=== PATIENT | male | born 1965 | race Caucasian/White ===

== ENCOUNTER 2019-03-12 18:42 | Inpatient (IN) ==
[2019-03-12] MEDS ORDERED: SODIUM CHLORIDE 0.9% 1000ML 1,000 ML IV SCH (18:45)
[2019-03-12] MEDS ORDERED: OPTIRAY 320 125ml IV PRN (18:49)
--- NOTE | 2019-03-12 18:58 | CT Scan Report ---
CT head/brain wo con CLINICAL HISTORY: 54 years-old Male presenting with Stroke evaluation. TECHNIQUE: Multidetector CT imaging of the head was performed without the use of intravenous contrast . IV contrast: None. One or more dose lowering techniques were used consistent with the principles of ALARA (as low as reasonably achievable), including automatic exposure control, mA or kV adjustment t o individual patient size, and/or use of iterative reconstruction. COMPARISON: None. CT DOSE (mGy.cm): The estimated cumulative dose is 1097.18. FINDINGS: Parcel Wrapper topogram: The patient is edentulous. Ventricles and sulci normal in size. No hemorrhage. Brain parenchyma normal in appearance with preser remedios austin-white differentiation. No acute territorial infarct. No mass effect or midline shift. No ext ra-axial fluid collection. Paranasal sinuses and mastoid air cells clear. Calvarium intact. IMPRESSION: 1. No acute intracranial abnormality. Electronically signed by: Que Leal M.D. 03/12/2019 6:56 PM
--- NOTE | 2019-03-12 19:03 | CT Scan Report ---
CT angio head w con CLINICAL HISTORY: 54 years-old Male presenting with right-sided weakness, concern for CVA. TECHNIQUE: Multidetector CT angiography of the head was performed after the administration of intrave nous contrast. 3-D volumetric and/or maximum intensity projection (MIP) images were subsequently lucia nstructed for review. IV contrast: 118 mL of Optiray 320. One or more dose lowering techniques were u sed consistent with the principles of ALARA (as low as reasonably achievable), including automatic ex posure control, mA or kV adjustment to individual patient size, and/or use of iterative reconstructio n. COMPARISON: None. CT DOSE (mGy.cm): The estimated cumulative dose is 1097.18 mGy.cm. FINDINGS: Heel Sander topogram: Unremarkable. Anterior circulation: Atherosclerosis of the cavernous segments of the internal carotid arteries. Int racranial portions of the internal carotid arteries patent to the level of the termini. Anterior cere bral arteries patent. Right middle cerebral artery (MCA) patent. Left MCA extremely diminutive with p oor delineation of left M2 branches. This raises concern for a proximal left MCA occlusion. Anterior communicating artery patent. Posterior circulation: Left dominant vertebral artery. Intradural portions of the vertebral arteries patent. Posterior inferior cerebellar arteries patent. Basilar artery patent. Anterior inferior cereb ellar arteries poorly visualized. Superior cerebellar arteries patent. Posterior cerebral arteries pa tent. Right posterior communicating artery (P-comm) patent. Left P-comm hypoplastic or aplastic. Dural venous sinuses: Patent. Other: Allowing for the phase of contrast, brain parenchyma within normal limits. Calvarium intact. IMPRESSION: 1. Findings concerning for proximal left MCA occlusion with overall poor opacification of distal lef t MCA territory branches. The report will be called/faxed according to standard departmental protocol for a critical finding. Electronically signed by: Que Leal M.D. 03/12/2019 7:02 PM
--- NOTE | 2019-03-12 19:06 | CT Scan Report ---
CT angio neck with con CLINICAL HISTORY: 54 years-old Male presenting with CVA. TECHNIQUE: Multidetector CT angiography of the neck was performed after the administration of intrave nous contrast. 3-D volumetric and/or maximum intensity projection (MIP) images were subsequently lucia nstructed for review. IV contrast: 118 mL of Optiray 320. One or more dose lowering techniques were u sed consistent with the principles of ALARA (as low as reasonably achievable), including automatic ex posure control, mA or kV adjustment to individual patient size, and/or use of iterative reconstructio n. Stenosis measurements were based on NASCET-like criteria (distal lumen diameter as the denominator for stenosis measurement). COMPARISON: None. CT DOSE (mGy.cm): The estimated cumulative dose is 1097.18. FINDINGS: Clinical Scientist topogram: Unremarkable. Aortic arch: Normal three-vessel aortic arch with patent origins of the branch vessels. Innominate artery: Patent. Right subclavian artery: Patent. Right common carotid artery: Patent. Right internal and external carotid arteries: Mild calcified and noncalcified atherosclerotic plaque at the carotid bifurcation without stenosis of the internal or external carotid arteries. Left common carotid artery: Patent. Left internal and external carotid arteries: Mild calcified and noncalcified atherosclerotic plaque a t the carotid bifurcation without stenosis of the internal or external carotid arteries. Left subclavian artery: Patent. Vertebral arteries: Left dominant vertebral artery. Origins and courses of the bilateral vertebral ar teries patent. Other: Limited intracranial evaluation within normal limits. Soft tissues of the neck normal allowing for the phase of contrast. Degenerative changes of the cervical spine. Lung apices clear. IMPRESSION: 1. No evidence of dissection, focal vessel occlusion, or significant stenosis of the cervical arteri es. Electronically signed by: Que Leal M.D. 03/12/2019 7:05 PM
[2019-03-12 19:19] LABS: Basophils # (auto) 0.04 K/uL (0-0.2); Basophils % (auto) 0.5 %; Eosinophils # (auto) 0.31 K/uL (0-0.5); Eosinophils % (auto) 3.9 %; Hemoglobin 14.5 g/dL (14.0-18.0); Immature Granulocytes # (auto) 0.03 K/uL (0.00-0.02); Immature Granulocytes % (auto) 0.4 %; Lymphocytes # (auto) 2.64 K/uL (1.2-3.4); Lymphocytes % (auto) 33.4 %; Mean Corpuscular Hemoglobin 30.1 pg (25-34); Mean Corpuscular Hgb Conc 34.5 g/dL (32-36); Mean Corpuscular Volume 87.3 fL (80-100); Mean Platelet Volume 8.9 fL (7.4-10.4); Monocytes # (auto) 0.55 K/uL (0.11-0.59); Neutrophils # (auto) 4.34 K/uL (1.4-6.5); Neutrophils % (auto) 54.8 %; Platelet Count 336 K/uL (130-400); RDW Coefficient of Variation 14.3 % (11.5-14.5); RDW Standard Deviation 45.9 fL (36.4-46.3); Red Blood Count 4.81 M/uL (4.7-6.1); White Blood Count 7.91 K/uL (4.8-10.8)
--- NOTE | 2019-03-12 19:21 | XRay Report ---
XR chest 1V portable CLINICAL HISTORY: 54 years-old Male presenting with CVA. TECHNIQUE: Portable upright AP view of the chest was obtained. COMPARISON: None. FINDINGS: Cardiomediastinal silhouette normal. No focal opacity. No large effusion or pneumothorax. Osseous str uctures normal. Upper abdomen normal. IMPRESSION: 1. No acute cardiopulmonary disease. Electronically signed by: Que Leal M.D. 03/12/2019 7:20 PM
[2019-03-12 19:29] LABS: Partial Thromboplastin Ratio 0.9; Partial Thromboplastin Time 24.5 Seconds (21.0-31.0); Prothrombin Time 10.2 Seconds (9.0-12.0)
[2019-03-12 19:36] LABS: Alanine Aminotransferase 35 U/L (12-78); Albumin Level 3.9 gm/dl (3.4-5.0); Aspartate Aminotransferase 15 U/L (15-37); BUN Creatinine Ratio 20.4 (10-20); Blood Urea Nitrogen 21 mg/dl (7-18); Calcium 9.2 mg/dl (8.5-10.1); Carbon Dioxide 28 mmol/L (21-32); Chloride 104 mmol/L (98-107); Est GFR (African American) 96.3; Est GFR (Non-African American) 83.1; Glucose 76 mg/dl (70-99); Magnesium 2.1 mg/dl (1.8-2.4); Sodium 138 mmol/L (136-145)
[2019-03-12 19:42] LABS: Albumin Globulin Ratio 1.1 (0.9-2); Alkaline Phosphatase 91 U/L (45-117); Bilirubin,Total 0.2 mg/dl (0.2-1); Globulin 3.7 gm/dl (2.5-4.0); Total Protein 7.6 gm/dl (6.4-8.2); Troponin I < 0.015 ng/ml (0-0.045)
[2019-03-12] MEDS ORDERED: ACETAMINOPHEN 1,000 MG/100 ML VIAL IV STA (19:52)
--- NOTE | 2019-03-12 20:01 | Emergency Department Note ---
Entered by Stacey Smith acting as a scribe for Kuldeep Bolton DO History of Present Illness General Chief complaint: Stroke Alert Stated complaint: STROKE ALERT Source: patient and other (nursing staff) History of Present Illness Onset (ago): hour(s) (1744 today) Location: head and neck Quality: + other (stroke like symptoms) Associated symptoms: + other (Positive head pain, back pain) The patient is a 54 year old male who presents to the ED with stroke like symptoms. As per nursing staff, the patient's last known well was 1744. Nursing staff reports the patient has a right sided facial droop. When asked, the zuleyma ent states he has head and neck pain. The patient states he was recently at [facility] for a stroke. When asked why the medical center thought he had a stroke, the patient states it is because "he has had many." He states he had bleeding in his brain from a clot in his brain. When asked the last time he had a stroke, the patient states he "does not remember." HPI and ROS limited due to the patient's current status. Home Medications Home Medications Medication Instructions Recorded Confirmed Type amlodipine 10 mg PO DAILY 03/12/19 03/12/19 History aspirin [Aspir-81] 81 mg PO DAILY 03/12/19 03/12/19 History atorvastatin 40 mg PO DAILY 03/12/19 03/12/19 History citalopram [Celexa] 20 mg PO DAILY 03/12/19 03/12/19 History clopidogrel [Plavix] 75 mg PO DAILY 03/12/19 03/12/19 History mirtazapine 15 mg PO DAILY 03/12/19 03/12/19 History nicotine 1 patch TRANSDERMAL DAILY 03/12/19 03/12/19 History nicotine (polacrilex) 2 mg BUCCAL DIRECTED PRN 03/12/19 03/12/19 History ziprasidone HCl [Geodon] 20 mg PO DAILY 03/12/19 03/12/19 History Allergies Allergy/AdvReac Type Severity Reaction Status Date / Time amoxicillin [From Augmentin] Allergy Unknown Unknown Verified 03/12/19 19:49 bee venom protein (honey bee) Allergy Unknown Unknown Verified 03/12/19 19:49 clavulanic acid Allergy Unknown Unknown Verified 03/12/19 19:49 [From Augmentin] turkey Allergy Unknown Unknown Verified 03/12/19 19:49 Past Med/Surg History Social History Preferred Language: Swedish Communication Ability: Effective Lens Grinder Rough Required: No Beliefs That Will Affect Care: None Current Living Situation: Homeless Other Information That Helps Us Care for You: No Feels Safe at Home: Yes Safety Concerns: Feels Safe At This Time Smoking Status: Current every day smoker Tobacco Type: cigarettes ; Cigarettes Per Day: 10 ; Do You Dip or Chew Tobacco: No ; Hx Alcohol Use: No Hx Substance Use: No Review of Systems See HPI for pertinent positives & negatives. Other (HPI and ROS limited due to the patient's current status. ) Physical Exam Vital Signs Vital Signs - 24 hr 03/12/19 18:46 03/12/19 19:45 03/12/19 20:30 Sepsis Recent Fever Within 48 Hours No Sepsis New/Unexplained Change in Mental Status Yes Sepsis Action Taken by Nursing No Action Required Pulse Rate 79 Pulse Rate [Bilateral] 72 87 Pulse Rhythm Regular Pulse Rhythm [Bilateral] Regular Regular Pulse Strength [Bilateral] Normal Normal Respiratory Rate 18 18 18 Respiratory Effort / Characteristics Non-Labored Spontaneous Non-Labored Spontaneous Non-Labored Spontaneous Respiratory Depth Normal Normal Normal Respiratory Pattern Regular Regular Blood Pressure 161/104 H Blood Pressure [Right Arm] 158/102 H 143/86 H Blood Pressure Mean 123 Blood Pressure Mean [Right Arm] 120 105 Blood Pressure Position Lying Blood Pressure Position [Right Arm] Lying Sitting Pulse Oximetry 97 97 99 Oxygen Delivery Method Room Air Room Air Room Air GENERAL: The patient is awake and anxious appearing. He answers questions slowly and follows commands slowly. EYES: The conjunctivae are clear. The pupils are round and reactive. EARS, NOSE, MOUTH AND THROAT: The nose is without any evidence of any deformity. Mucous membranes are moist tongue is midline NECK: The neck is nontender and supple. RESPIRATORY: Normal respiratory effort is noted there is no evidence of wheezing rhonchi or rales CARDIOVASCULAR: Regular rate and rhythm noted there no murmurs rubs or gallops normal S1 normal S2 GASTROINTESTINAL: The abdomen is soft. Bowel sounds are present in all quadrants. Abdomen is nontender MUSCULOSKELETAL/EXTREMITIES: There is no evidence of gross deformity full range of motion is noted in the hips and shoulders SKIN: There is no obvious evidence of any rash. There are no petechiae, pallor or cyanosis noted. NEUROLOGIC: The patient is oriented to person place but not time. Revolving Inventory Clerk strength is diminished in the right upper extremity. There is no gaze preference. Patient is able to hold each leg off the bed for greater than 5 seconds. Course 1844: Past medical records reviewed. The patient was evaluated in room A1. A complete history and physical exam was performed. 1904: I discussed the patient's case with Jade Alarcon neurologist. She will communicate via Telestroke. 1934: I discussed the patient's case with Jade Alarcon neurologist. She r ecommends no tPA at this time. 1944: Discussed the patient's case with Dr. Dasilva, [facility] Hospitalist. The patient will be evaluated for further management by him. 2002: The patient would like to sign out AMA. Administered Medications Sodium Chloride (Nss 1000ml) 1,000 mls @ 100 mls/hr IV .Q10H DALLIN Stop: 03/13/19 04:44 Last Admin: 03/12/19 19:38 Dose: 50 mls/hr Documented by: [id number] Ioversol (Optiray 320 125ml) 118 ml IV ONCE PRN PRN Reason: Interaction Checking Stop: 03/16/19 18:48 Last Admin: 03/12/19 18:49 Dose: 118 ml Documented by: [id number] Mirtazapine (Remeron) 15 mg PO HS DALLIN Stop: 04/11/19 21:59 Last Admin: 03/12/19 22:27 Dose: 15 mg Documented by: [id number] Nicotine (Nicoderm Cq) 21 mg TD QAM DALLIN Stop: 04/11/19 21:59 Last Admin: 03/12/19 22:27 Dose: 21 mg Documented by: [id number] Discontinued Medications Acetaminophen (Ofirmev) 1,000 mg in 100 mls @ 400 mls/hr IV NOW STA Stop: 03/12/19 20:06 Last Infusion: 03/12/19 20:35 Dose: 0 mls/hr Documented by: [id number] Admin: 03/12/19 20:11 Dose: 400 mls/hr Documented by: [id number] Medical Decision Making Differential Diagnosis Differential diagnosis: Etiologies such as metabolic, infection, hypo/hyperglycemia, electrolyte abnormalities, cardiac sources, intracerebral event, toxicologic, neurologic, as well as others were entertained. Medical Records Attestation: I reviewed the patient's medical records. Home Medications Current Medication List: was personally reviewed by me Laboratory Data Attestation: I reviewed the patient's lab results. Result diagrams: 03/12/19 19:08 03/12/19 19:08 Lab Results 03/12/19 03/12/19 03/12/19 Range/Units 19:08 19:08 19:08 WBC 7.91 (4.8-10.8) K/uL RBC 4.81 (4.7-6.1) M/uL Hgb 14.5 (14.0-18.0) g/dL Hct 42.0 (42-52) % MCV 87.3 (80-100) fL MCH 30.1 (25-34) pg MCHC 34.5 (32-36) g/dL RDW Std Deviation 45.9 (36.4-46.3) fL RDW Coeff of Neto 14.3 (11.5-14.5) % Plt Count 336 (130-400) K/uL MPV 8.9 (7.4-10.4) fL Immature Gran % (Auto) 0.4 % Neut % (Auto) 54.8 % Lymph % (Auto) 33.4 % [place] % (Auto) 7.0 % Eos % (Auto) 3.9 % Baso % (Auto) 0.5 % Immature Gran # (Auto) 0.03 H (0.00-0.02) K/uL Neut # (Auto) 4.34 (1.4-6.5) K/uL Lymph # (Auto) 2.64 (1.2-3.4) K/uL [place] # (Auto) 0.55 (0.11-0.59) K/uL Eos # (Auto) 0.31 (0-0.5) K/uL Baso # (Auto) 0.04 (0-0.2) K/uL PT 10.2 (9.0-12.0) Seconds INR 1.0 (0.9-1.1) APTT 24.5 (21.0-31.0) Seconds PTT Ratio 0.9 Sodium 138 (136-145) mmol/L Potassium 4.0 (3.5-5.1) mmol/L Chloride 104 (98-107) mmol/L Carbon Dioxide 28 (21-32) mmol/L Anion Gap 6.0 (3-11) BUN 21 H (7-18) mg/dl Creatinine 1.03 (0.6-1.4) mg/dl Est Cr Clr Drug Dosing Not Reportable Est GFR ( Amer) 96.3 Est GFR (Non-Af Amer) 83.1 BUN/Creatinine Ratio 20.4 H (10-20) Glucose 76 (70-99) mg/dl Calcium 9.2 (8.5-10.1) mg/dl Magnesium 2.1 (1.8-2.4) mg/dl Total Bilirubin 0.2 (0.2-1) mg/dl AST 15 (15-37) U/L ALT 35 (12-78) U/L Alkaline Phosphatase 91 (45-117) U/L Troponin I < 0.015 (0-0.045) ng/ml Total Protein 7.6 (6.4-8.2) gm/dl Albumin 3.9 (3.4-5.0) gm/dl Globulin 3.7 (2.5-4.0) gm/dl Albumin/Globulin Ratio 1.1 (0.9-2) Imaging Data Radiologist's Impression: Radiology results as stated below per my review and the radiologist's interpretation: XR chest 1V portable CLINICAL HISTORY: 54 years-old Male presenting with CVA. TECHNIQUE: Portable upright AP view of the chest was obtained. COMPARISON: None. FINDINGS: Cardiomediastinal silhouette normal. No focal opacity. No large effusion or pneumothorax. Osseous structures normal. Upper abdomen normal. IMPRESSION: 1. No acute cardiopulmonary disease. Electronically signed by: Que Leal M.D. 03/12/2019 7:[address] head/brain wo con CLINICAL HISTORY: 54 years-old Male presenting with Stroke evaluation. TECHNIQUE: Multidetector CT imaging of the head was performed without the use of intravenous contrast. IV contrast: None. One or more dose lowering techniques were used consistent with the principles of ALARA (as low as reasonably achievable), including automatic exposure control, mA or kV adjustment to individual patient size, and/or use of iterative reconstruction. COMPARISON: None. CT DOSE (mGy.cm): The estimated cumulative dose is 1097.18. FINDINGS: Chemical Technician topogram: The patient is edentulous. Ventricles and sulci normal in size. No hemorrhage. Brain parenchyma normal in appearance with preserved austin-white differentiation. No acute territorial infarct. No mass effect or midline shift. No extra-axial fluid collection. Paranasal sinuses and mastoid air cells clear. Calvarium intact. IMPRESSION: 1. No acute intracranial abnormality. Electronically signed by: Que Leal M.D. 03/12/2019 6:[address] angio head w con CLINICAL HISTORY: 54 years-old Male presenting with right-sided weakness, concern for CVA. TECHNIQUE: Multidetector CT angiography of the head was performed after the administration of intravenous contrast. 3-D volumetric and/or maximum intensity projection (MIP) images were subsequently reconstructed for review. IV contrast: 118 mL of Optiray 320. One or more dose lowering techniques were used consistent with the principles of ALARA (as low as reasonably achievable), including automatic exposure control, mA or kV adjustment to individual patient size, and/or use of iterative reconstruction. COMPARISON: None. CT DOSE (mGy.cm): The estimated cumulative dose is 1097.18 mGy.cm. FINDINGS: Chemical Technician topogram: Unremarkable. Anterior circulation: Atherosclerosis of the cavernous segments of the internal carotid arteries. Intracranial portions of the internal carotid arteries patent to the level of the termini. Anterior cerebral arteries patent. Right middle cerebral artery (MCA) patent. Left MCA extremely diminutive with poor delineation of left M2 branches. This raises concern for a proximal left MCA occlusion. Anterior communicating artery patent. Posterior circulation: Left dominant vertebral artery. Intradural portions of the vertebral arteries patent. Posterior inferior cerebellar arteries patent. Basilar artery patent. Anterior inferior cerebellar arteries poorly visualized. Superior cerebellar arteries patent. Posterior cerebral arteries patent. Right posterior communicating artery (P-comm) patent. Left P-comm hypoplastic or aplastic. Dural venous sinuses: Patent. Other: Allowing for the phase of contrast, brain parenchyma within normal limits. Calvarium intact. IMPRESSION: 1. Findings concerning for proximal left MCA occlusion with overall poor opacification of distal left MCA territory branches. The report will be called/faxed according to standard departmental protocol for a critical finding. Electronically signed by: Que Leal M.D. 03/12/2019 7:[address] angio neck with con CLINICAL HISTORY: 54 years-old Male presenting with CVA. TECHNIQUE: Multidetector CT angiography of the neck was performed after the administration of intravenous contrast. 3-D volumetric and/or maximum intensity projection (MIP) images were subsequently reconstructed for review. IV contrast: 118 mL of Optiray 320. One or more dose lowering techniques were used consistent with the principles of ALARA (as low as reasonably achievable), including automatic exposure control, mA or kV adjustment to individual patient size, and/ or use of iterative reconstruction. Stenosis measurements were based on NASCET- like criteria (distal lumen diameter as the denominator for stenosis measurement). COMPARISON: None. CT DOSE (mGy.cm): The estimated cumulative dose is 1097.18. FINDINGS: Chemical Technician topogram: Unremarkable. Aortic arch: Normal three-vessel aortic arch with patent origins of the branch vessels. Innominate artery: Patent. Right subclavian artery: Patent. Right common carotid artery: Patent. Right internal and external carotid arteries: Mild calcified and noncalcified atherosclerotic plaque at the carotid bifurcation without stenosis of the internal or external carotid arteries. Left common carotid artery: Patent. Left internal and external carotid arteries: Mild calcified and noncalcified atherosclerotic plaque at the carotid bifurcation without stenosis of the internal or external carotid arteries. Left subclavian artery: Patent. Vertebral arteries: Left dominant vertebral artery. Origins and courses of the bilateral vertebral arteries patent. Other: Limited intracranial evaluation within normal limits. Soft tissues of the neck normal allowing for the phase of contrast. Degenerative changes of the cervical spine. Lung apices clear. IMPRESSION: 1. No evidence of dissection, focal vessel occlusion, or significant stenosis of the cervical arteries. Electronically signed by: Que Leal M.D. 03/12/2019 7:05 PM ECG Data Attestation: I personally reviewed and interpreted this ECG as follows: Indication: other (stroke like symptoms) Rate (beats per minute): 82 Rhythm: normal sinus Findings: + other (no acute ST segments ); no ectopy Comparison ECG Date: no prior available Blood Pressure Blood Pressure Findings: Elevated blood pressure Blood Pressure Disposition: Referred to patients primary care provider CASSIE Narrative The patient is a 54-year-old male who presented to the emergency department as a stroke alert. The patient presented to the emergency department from the [facility] where he was an inpatient for mental health admission. The patient was found in his room on the floor with right-sided weakness and slurred speech. He was brought to the emergency department and made a stroke alert prior to arrival. The patient was taken directly to CT. Initially the patient was felt to be a candidate for TPA but we were able to get previous records from December where he had a very similar presentation. He does have some cerebrovascular issues with a left M1 segment of the middle cerebral artery. This was thought to be the culprit in his previous episode. He was treated with TPA in December. I discussed the patient's laboratory and radiographic studies with him. I discussed his case with the tele-stroke neurologist at [facility]. At this time I do not feel he is a good candidate for TPA given his recent treatment with TPA as well as his presentation being consistent with a stroke mimic. It was also found out during his interview with the tele-stroke neurologist that his symptoms may have been starting earlier in the day and the timing may put him out of the window for TPA. The patient was reevaluated multiple times. He was treated with IV fluids in the emergency department. I discussed his case with the on-call [facility] hospitalist group. They have agreed to evaluate the patient in the emergency department for further management disposition. The patient one-point was feeling much better and was possibly thinking about signing out AGAINST MEDICAL ADVICE. Ultimately when he was evaluated by the hospitalist team he was willing to stay for further inpatient management. Impression & Plan Cerebrovascular accident Discharge Plan Visit Data *Final* Discharge Date/Time: 03/12/19 21:00 Chief Complaint: Stroke Alert Stated Complaint: STROKE ALERT ED Provider: Kuldeep Bolton Discharge Problem: Cerebrovascular accident Patient Disposition: Admitted As Inpatient Discharge Instructions Interventions: ED Discharge Assessment Last Done: 03/12/19 21:00 Discharge Problem: Cerebrovascular accident Qualifiers: CVA mechanism: unspecified Qualified Code(s): I63.9 - Cerebral infarction, unspecified The scribe's documentation has been prepared under my direction and personally reviewed by me in its entirety. I confirm that the note above accurately reflects all work, treatment, procedures, and medical decision making performed by me.
--- NOTE | 2019-03-12 20:25 | History & Physical Report ---
Date of Service March 12, 2019 Assessment & Plan (1) TIA (transient ischemic attack): Mr. Garnica is a 54-year-old male with a past medical history of CVA, hypertension, hypercholesterolemia, and psychiatric disorders, who presented to the emergency department due to concerns for a stroke. ED course: 1 g IV acetaminophen, IV NS -Admit to telemetry -Symptoms of confusion, right sided weakness, and right facial droop resolved by the time of my examination -CT head negative, CTA neck negative -CTA head showed proximal left MCA occlusion -> Reportedly this occlusion is chronic - had the same findings at [facility] in December -> ED physician discussed his case with neurology in [place], who did not recommend TPA given improving symptoms -> Patient reported having a dose of clonidine prior to the onset of the symptoms - may have dropped his blood pressure, resulting in a steal phenomenon -MRI head ordered, as well as ECHO, HbA1c and FLP to complete a full stroke workup -PT/OT/SLT evals ordered -neurology consulted, thank you for recommendations -continue home aspirin and plavix Hypertension -Hold home amlodipine -clonidine is not listed on pt's home medications Hypercholesterolemia -Continue home atorvastatin Psychiatric disorders -Continue home citalopram, ziprasidone and mirtazapine -Patient requested PRN Ativan, stating he takes this at home Tobacco abuse -nicotine patch ordered -Encourage smoking cessation CODE STATUS: Full DVT prophylaxis: SCDs Disposition: Admit to telemetry. Eventual d/c back to the [facility] (2) Depression: (3) Hypercholesterolemia: (4) Hypertension: (5) Tobacco abuse: History of Present Illness Chief Complaint: Right sided Weakness Primary Care Provider: Charly White Mr. Garnica is a 54-year-old male with a past medical history of CVA, hypertension, hypercholesterolemia, and psychiatric disorders, who presented to the emergency department due to concerns for a stroke. The patient is currently residing at the [facility], where he was undergoing inpatient treatment for his psychiatric conditions. [place] nursing staff was not present at the time of my examination, and medical history is largely obtained by chart review, and discussion with the ED physician and nursing. Per the chart review, the patient was last well at 5:45 PM. After this time, he was found to be "unresponsive," m utening he was not answering questions. When he did begin answering questions, he was confused, and exhibiting a right-sided facial droop and right-sided weakness. Per the staff at the [facility], this occurred after the patient took his evening dose of clonidine. Mr. Garnica states that he does not remember why he was brought to the hospital. He states that his last memory was going downstairs for dinner. He states that he currently feels well, and has no acute complaints. He states that he has not had any illnesses recently. He does report that he had a recent stroke per months ago at [facility] in [place]. He is not too clear on the details surrounding this. Past medical history: history of CVA, hypertension, hypercholesterolemia, and psychiatric disorders (patient states that he just has severe depression, however he is on medications to treat bipolar disorder and schizophrenia) Past surgical history: 2 ACL repairs, back surgery Medications: Amlodipine, aspirin, atorvastatin, citalopram, clopidogrel, mirtazapine, nicotine replacement, ziprasidone. Clonidine is not listed on patient's medication list Allergies: Augmentin Social history: Resides at the [facility], recently moved there 2 days ago. Smokes half a pack of cigarettes per day, does not wish to tell me how long he has been smoking for. No recent alcohol or recreational drug use. Allergies Allergy/AdvReac Type Severity Reaction Status Date / Time amoxicillin [From Augmentin] Allergy Unknown Unknown Verified 03/12/19 19:49 bee venom protein (honey bee) Allergy Unknown Unknown Verified 03/12/19 19:49 clavulanic acid Allergy Unknown Unknown Verified 03/12/19 19:49 [From Augmentin] turkey Allergy Unknown Unknown Verified 03/12/19 19:49 Home Medications Home Medications Medication Instructions Recorded Confirmed Type amlodipine 10 mg PO DAILY 03/12/19 03/12/19 History aspirin [Aspir-81] 81 mg PO DAILY 03/12/19 03/12/19 History atorvastatin 40 mg PO DAILY 03/12/19 03/12/19 History citalopram [Celexa] 20 mg PO DAILY 03/12/19 03/12/19 History clopidogrel [Plavix] 75 mg PO DAILY 03/12/19 03/12/19 History mirtazapine 15 mg PO DAILY 03/12/19 03/12/19 History nicotine 1 patch TRANSDERMAL DAILY 03/12/19 03/12/19 History nicotine (polacrilex) 2 mg BUCCAL DIRECTED PRN 03/12/19 03/12/19 History ziprasidone HCl [Geodon] 20 mg PO DAILY 03/12/19 03/12/19 History Past Med/Surg History Social History Preferred Language: Occitan Communication Ability: Effective Wedding Makeup Artist Required: No Beliefs That Will Affect Care: None Current Living Situation: Homeless Other Information That Helps Us Care for You: No Feels Safe at Home: Yes Safety Concerns: Feels Safe At This Time Smoking Status: Current every day smoker Tobacco Type: cigarettes ; Cigarettes Per Day: 10 ; Do You Dip or Chew Tobacco: No ; Hx Alcohol Use: No Hx Substance Use: No Review of Systems Constitutional: no fever, no chills, no fatigue, no weakness and no anorexia Eyes: no diplopia and no loss of peripheral vision Respiratory: no cough, no dyspnea and no wheezing Cardiovascular: no chest pain, no palpitations, no syncope, no edema and no calf pain Gastrointestinal: no abdominal pain, no nausea, no vomiting and no change in bowel habits Genitourinary: no dysuria and no difficulty urinating Musculoskeletal: + joint pain (right knee pain, secondary to ACL tear per patient); no back pain Integumentary: no rash Neurologic: + confusion Psychiatric: + depression Physical Exam Constitutional: WD/WN, vitals as above cooperative and comfortable Eyes: PERRL, conjunctivae normal, anicteric sclerae ENMT: external ear and nose normal, oropharynx normal Respiratory: normal respiratory effort, lungs clear to auscultation Cardiovascular: RRR, no murmur, no edema Gastrointestinal (Abdomen): normal bowel sounds, soft, nontender, no hepatosplenomegaly Musculoskeletal: no cyanosis or clubbing, extremities motor strength 5/5 Skin: no rashes, warm and dry Neurologic: patellar DTR's 2+ bilat, sensation intact and PERRL, EOMI, accommodation nl, no face palsy, no dysarthria moves all extremities and awake Motor/Sensory: + pronator drift (right sided) Results & Data Vital Signs (Past 12 Hours) Vital Signs Pulse Pulse Resp BP BP Pulse Ox 03/12/19 19:45 72 18 158/102 H 97 03/12/19 18:46 79 18 161/104 H 97 Supervising Physician Co-Signing Physician Notes Patient was seen and examined by me personally. I reviewed the chart, the orders and discussed the case in detail with Dr. Teresa Rod MD . I read this H&P and agree with its contents to entirety. PG Care Time/CCT Total # of Minutes Spent Total Time Spent with Patient: Total time spent is greater than 50% in coor dination of care (as documented) at patient's floor/unit and/or counseling patient: Resident Activity Tracking Resident Involvement: Resident Care Provided Care Provided: Adult Hospital Medicine
[2019-03-12] MEDS ORDERED: PHARMACIST DISCHARGE MED REC CONSULT PRN (21:29)
[2019-03-12] MEDS ORDERED: ACETAMINOPHEN 325 MG TAB PO PRN (21:29)
[2019-03-12] MEDS ORDERED: MIRTAZAPINE TAB 15 MG TAB PO SCH (22:00)
[2019-03-12] MEDS ORDERED: NICOTINE 21 MG/24 HR TDSY TD SCH (22:00)
[2019-03-13] MEDS: LORazepam 0.5 MG TAB PO PRN ×3 (03:44→17:13)
[2019-03-13] MEDS ORDERED: CALCIUM CARBONATE 500 MG CHEWABLE TAB PO PRN (03:55)
[2019-03-13 06:09] LABS: Basophils # (auto) 0.04 K/uL (0-0.2); Basophils % (auto) 0.5 %; Eosinophils # (auto) 0.48 K/uL (0-0.5); Eosinophils % (auto) 6.5 %; Hematocrit (blood only) 39.8 % (42-52); Hemoglobin 13.7 g/dL (14.0-18.0); Immature Granulocytes # (auto) 0.02 K/uL (0.00-0.02); Immature Granulocytes % (auto) 0.3 %; Lymphocytes # (auto) 3.06 K/uL (1.2-3.4); Lymphocytes % (auto) 41.7 %; Mean Corpuscular Hgb Conc 34.4 g/dL (32-36); Mean Corpuscular Volume 87.3 fL (80-100); Mean Platelet Volume 8.7 fL (7.4-10.4); Monocytes # (auto) 0.43 K/uL (0.11-0.59); Monocytes % (auto) 5.9 %; Neutrophils % (auto) 45.1 %; Platelet Count 290 K/uL (130-400); RDW Coefficient of Variation 14.2 % (11.5-14.5); RDW Standard Deviation 45.4 fL (36.4-46.3); Red Blood Count 4.56 M/uL (4.7-6.1); White Blood Count 7.33 K/uL (4.8-10.8)
[2019-03-13 06:43] LABS: Calcium 8.8 mg/dl (8.5-10.1); Creatinine Clr Calc Pharmacy 87.3 ml/min; Est GFR (African American) 101.1; Est GFR (Non-African American) 87.2; Potassium 3.7 mmol/L (3.5-5.1)
--- NOTE | 2019-03-13 06:57 | Magnetic Resonance Report ---
MR brain wo con HISTORY: Mental status change CVA vs TIA TECHNIQUE: Multiplanar multisequence MRI of the brain was performed without the use of contrast. COMPARISON STUDY: None. FINDINGS: No evidence for an acute ischemic event. Ventricular system is midline. Several nonspecific foci of increased signal within both cerebral hemispheres as well as the optic ra diations. Diagnostic considerations include chronic small vessel change, atypical late onset demyelinating diso rder, as well as a variety of less common entities such as Lyme's disease. IMPRESSION: 1. No acute intracranial abnormality. 2. No evidence for an acute ischemic event. 3. Several nonspecific foci of increased signal throughout both cerebral hemispheres. Diagnostic cons iderations include a late onset demyelinating disorder, chronic small vessel change, versus less like ly entities such as Lyme's disease. The above report was generated using voice recognition software. It may contain grammatical, syntax or spelling errors. Electronically signed by: Jacob Ying M.D. 03/13/2019 6:56 AM
[2019-03-13 06:59] LABS: Estimated Average Glucose 114 mg/dl; Hemoglobin A1C 5.6 % (4.5-5.6)
[2019-03-13] MEDS ORDERED: NICOTINE 21 MG/24 HR TDSY TD SCH (09:00)
[2019-03-13] MEDS ORDERED: ASPIRIN 81 MG ECTAB PO SCH (09:00)
[2019-03-13] MEDS ORDERED: ATORVASTATIN 40 MG TAB PO SCH (09:00)
[2019-03-13] MEDS ORDERED: ZIPRASIDONE HCL 20 MG CAP PO SCH (09:00)
[2019-03-13] MEDS ORDERED: CITALOPRAM 20 MG TAB PO SCH (09:00)
[2019-03-13] MEDS ORDERED: MIRTAZAPINE TAB 15 MG TAB PO SCH (09:00)
[2019-03-13] MEDS ORDERED: CLOPIDOGREL BISULFATE 75 MG TAB PO SCH (09:00)
--- NOTE | 2019-03-13 09:48 | Neurology Consultation ---
Date of Consultation March 13, 2019 Assessment & Plan (1) TIA (transient ischemic attack): This patient's presentation seems most consistent with a TIA localizing to the left middle cerebral artery territory. He does have what appears to be a proximal occlusion of the left MCA with poor distal reconstitution. Fortunately no evidence of acute or subacute infarct on MRI. This finding was apparently identified in December during a similar presentation to [facility]. He is already on maximal antiplatelet therapy and I would not recommend making any changes to either his aspirin or Plavix at this time. His blood pressure seems appropriate. No evidence for hypotensive episode. His blood glucose is normal as well. No evidence for hypoglycemic episode. As he was found unresponsive initially I am unable to completely exclude a seizure of focal onset localizing to the left cerebral hemisphere followed by a period of postictal weakness and speech change. Seizures were not observed in this patient, however. Nonetheless, for further assessment of possible "stroke mimics" I have ordered an EEG. Going forward, this patient should probably have a consultation with a neurovascular specialist at either [facility] or [facility] to determine if any further treatment would be indicated for his left MCA occlusion/severe stenosis. I do not think he has had a conventional arteriogram. However, the role for stenting of the middle cerebral arteries is not entirely clear. Yet, given his relatively young age and recurrent symptoms it is possible he would be a potential candidate for intervention. He should continue with atorvastatin as well. History of Present Illness Reason for Consultation: TIA? Requesting Physician: Teresa Rod MD Attending Physician: Ernst Betancourt History of Present Illness The patient is a 54-year-old male, transferred from the [facility], for further assessment of an abrupt change in mental status. He was apparently found on the floor exhibiting right-sided weakness and slurred speech. He came in to [facility] as a stroke alert. The symptoms have resolved. He does complain of a moderate intensity global headache with associated neck pain. He currently denies any change in vision, speech, or focal weakness. Past medical history notable for a very similar presentation that occurred this past December, at [facility], during which she was diagnosed with a suspected left MCA territory stroke syndrome and he was treated with TPA. He was found to have an occlusion or significant stenosis of the left M1 segment at that time. It sounds like he made a good neurological recovery. He has been taking both daily low-dose aspirin and clopidogrel as well as atorvastatin. Family history noncontributory Allergies Allergy/AdvReac Type Severity Reaction Status Date / Time amoxicillin [From Augmentin] Allergy Unknown Unknown Verified 03/12/19 19:49 bee venom protein (honey bee) Allergy Unknown Unknown Verified 03/12/19 19:49 clavulanic acid Allergy Unknown Unknown Verified 03/12/19 19:49 [From Augmentin] turkey Allergy Unknown Unknown Verified 03/12/19 19:49 Home Medications Home Medications Medication Instructions Recorded Confirmed Type amlodipine 10 mg PO DAILY 03/12/19 03/12/19 History aspirin [Aspir-81] 81 mg PO DAILY 03/12/19 03/12/19 History atorvastatin 40 mg PO DAILY 03/12/19 03/12/19 History citalopram [Celexa] 20 mg PO DAILY 03/12/19 03/12/19 History clopidogrel [Plavix] 75 mg PO DAILY 03/12/19 03/12/19 History mirtazapine 15 mg PO DAILY 03/12/19 03/12/19 History nicotine 1 patch TRANSDERMAL DAILY 03/12/19 03/12/19 History nicotine (polacrilex) 2 mg BUCCAL DIRECTED PRN 03/12/19 03/12/19 History ziprasidone HCl [Geodon] 20 mg PO DAILY 03/12/19 03/12/19 History Patient History Social History Preferred Language: Tuvaluan Communication Ability: Effective Food Manager Required: No Beliefs That Will Affect Care: None Current Living Situation: Homeless Other Information That Helps Us Care for You: No Feels Safe at Home: Yes Safety Concerns: Feels Safe At This Time Smoking Status: Current every day smoker Tobacco Type: cigarettes ; Cigarettes Per Day: 10 ; Do You Dip or Chew Tobacco: No ; Hx Alcohol Use: No Hx Substance Use: No Review of Systems Constitutional: no fever and no chills Eyes: no blind spots and no diplopia Ear, Nose, Mouth, Throat: no tinnitus and no hearing loss Respiratory: no cough and no dyspnea Cardiovascular: no chest pain and no palpitations Gastrointestinal: no nausea and no vomiting Genitourinary: no dysuria and no urinary incontinence Musculoskeletal: as per Subjective / HPI and + neck pain; no myalgia Integumentary: no rash and no lesions Neurologic: as per Subjective / HPI Psychiatric: + depression Hematologic / Lymphatic: no easy bleeding and no easy bruising Physical Exam Physical Exam: The patient is a well-developed, well-nourished middle-aged male. He is alert and fully oriented. Recent and remote memory intact. Attention and concentration normal. Patient exhibits a normal spontaneous speech pattern as well as an age-appropriate fund of knowledge. He is able to name objects and repeat phrases and follows commands without difficulty. Visual aguilar full to confrontation. Visual acuity normal. Pupils equal round react to light and accommodation. Eye movements normal. There is no nystagmus. Facial sensation intact. There is no facial droop or weakness. Hearing intact. Palate elevates to midline. Shoulder shrug intact. Tongue protrudes to midline. Sensation intact to all modalities in all 4 limbs. Deep tendon reflexes intact and symmetrical for the arms and legs bilaterally. Plantar responses downgoing bilaterally. There is no dysdiadochokinesia or dysmetria [id number] or [id number] bilaterally. Ophthalmoscopic examination reveals normal-appearing optic disks and posterior segments. No papilledema or hemorrhages. Carotid pulses normal bilaterally, no bruits to auscultation. Gait and station normal. Patient exhibits normal muscle strength and tone for all 4 limbs. No atrophy. No abnormal movements observed. Results & Data Vital Signs (Past 12 Hours) Vital Signs Temp Pulse Pulse Pulse Resp BP Pulse Ox 03/13/19 07:31 36.4 C L 72 18 151/95 H 97 03/13/19 04:15 36.4 C L 64 18 127/90 97 03/13/19 00:00 73 03/12/19 23:00 36.6 C 68 18 137/72 97 03/12/19 21:38 37 C 81 76 20 121/92 97 Laboratory Results WBC 7.33, hemoglobin 13.7, hematocrit 39.8, platelet count 290, sodium 142, potassium 3.7, BUN 17, creatinine 0.99, glucose 161, hemoglobin A1c 5.6, calcium 8.8, triglycerides 129, cholesterol 134, LDL 78, VLDL 26, HDL [address] of the head completed yesterday was negative for hemorrhage or acute process. I reviewed the images as well as the radiologist interpretation of this test. A CTA of the head revealed findings suggestive of a proximal left MCA occlusion with overall poor opacification of distal left MCA territory branches. I reviewed the images as well as the radiologist interpretation of this test. A CTA of the neck was unremarkable. No evidence for focal vessel occlusion, dissection or stenosis. MRI of the brain negative for acute abnormality. No evidence for acute or subacute ischemic stroke. There are several nonspecific foci of increased T2/flair signal throughout the brain parenchyma likely consistent with chronic small vessel ischemic change. I reviewed the images as well as the radiologist interpretation of this test. Electrocardiogram reveals a normal sinus rhythm, 82 bpm.
--- NOTE | 2019-03-13 10:43 | Electroencephalogram ---
EEG Procedure Note Date of Service March 13, 2019 Start / End Times Start Time: 8:56 AM End Time: 9:16 AM Referring Physician Varghese Elizondo MD History Left MCA occlusion, recurrent strokelike episodes, evaluate for possible seizure activity. Home Medication List Home Medications Medication Instructions Recorded Confirmed Type amlodipine 10 mg PO DAILY 03/12/19 03/12/19 History aspirin [Aspir-81] 81 mg PO DAILY 03/12/19 03/12/19 History atorvastatin 40 mg PO DAILY 03/12/19 03/12/19 History citalopram [Celexa] 20 mg PO DAILY 03/12/19 03/12/19 History clopidogrel [Plavix] 75 mg PO DAILY 03/12/19 03/12/19 History mirtazapine 15 mg PO DAILY 03/12/19 03/12/19 History nicotine 1 patch TRANSDERMAL DAILY 03/12/19 03/12/19 History nicotine (polacrilex) 2 mg BUCCAL DIRECTED PRN 03/12/19 03/12/19 History ziprasidone HCl [Geodon] 20 mg PO DAILY 03/12/19 03/12/19 History Inpatient Medication List Calcium Carbonate (Tums) 500 mg PO TID PRN PRN Reason: Indigestion Stop: 04/12/19 03:54 Last Admin: 03/13/19 05:59 Dose: 500 mg Documented by: [id number] Ioversol (Optiray 320 125ml) 118 ml IV ONCE PRN PRN Reason: Interaction Checking Stop: 03/16/19 18:48 Last Admin: 03/12/19 18:49 Dose: 118 ml Documented by: [id number] Lorazepam (Ativan) 0.5 mg PO BID PRN PRN Reason: Anxiety Stop: 04/11/19 21:48 Last Admin: 03/13/19 03:44 Dose: 0.5 mg Documented by: [id number] Mirtazapine (Remeron) 15 mg PO HS DALLIN Stop: 04/11/19 21:59 Last Admin: 03/12/19 22:27 Dose: 15 mg Documented by: [id number] Nicotine (Nicoderm Cq) 21 mg TD QAM DALLIN Stop: 04/11/19 21:59 Last Admin: 03/12/19 22:27 Dose: 21 mg Documented by: [id number] Discontinued Medications Sodium Chloride (Nss 1000ml) 1,000 mls @ 100 mls/hr IV .Q10H DALLIN Stop: 03/13/19 04:44 Last Admin: 03/12/19 19:38 Dose: 50 mls/hr Documented by: [id number] Acetaminophen (Ofirmev) 1,000 mg in 100 mls @ 400 mls/hr IV NOW STA Stop: 03/12/19 20:06 Last Infusion: 03/12/19 20:35 Dose: 0 mls/hr Documented by: [id number] Admin: 03/12/19 20:11 Dose: 400 mls/hr Documented by: [id number] Description This is a 21 electrode EEG with a single channel dedicated to limited EKG. The electrodes were placed in accordance with the International 10-20 system. There is a posterior dominant rhythm of 10 Hz which is symmetrically distributed and attenuates with eye opening. There is a normal anterior to posterior organization. Photic stimulation is unremarkable. Hyperventilation is not performed. There is fairly continuous 4 Hz posterior slowing, more prominent over the posterior left cerebral hemisphere. There are a few vertex waves in the latter part of the study suggesting N1 stage sleep. There are no epileptiform abnormalities. Interpretation This awake/asleep EEG reveals focal slowing localizing to the posterior left cerebral hemisphere and suggest focal underlying neuronal dysfunction. There are no findings suggestive of seizure disorder, however. Clinical Correlation The observed focal slowing is likely consistent with this patient's history of left MCA occlusion. A seizure disorder is not supported at this time. Please see today's neurology consult for further details. [facility] EEG Procedure Codes Indication for Procedure (1) Seizure-like activity: (2) TIA (transient ischemic attack):
--- NOTE | 2019-03-13 11:23 | Medical Student Progress Note ---
Date of Service March 13, 2019 Assessment & Plan (1) TIA (transient ischemic attack): Possible TIA of left MCA but no evidence on MRI, or possible seizure with postictal confusion and weakness. * EEG to evaluate possible seizure * aspirin + clopidogrel * hold BP med amlodipine for 24HR, then reinstate * continue statin, citalopram, mirtazapine, ziprasidone Subjective Pt is a 54 y/o male with a history of HTN, HLD, stroke, 15 pack-years, depression who presented to the ER with confusion, unresponsive, right side arm and leg weakness, and right facial droop. He was brought in by staff from the [facility]. Pt states he has not been on any medication for several years because he hasn't been able to afford them on SSI and being unemployed, and states he has had over 10 similar episodes within the past year. He states during these episodes, he loses function and feeling in his right arm, leg, and face, but these symptoms resolve within 1 to 2 hours. Pt states he feels disoriented afterwards, but does not endorse any incontinence during these episodes. Pt states that leading up to some episodes, he experiences chest pain, dyspnea, sweating, dry mouth, and metallic taste in his mouth. Pt states there have been a few times he's fallen and hit his head during an episode. Pt states that during this episode, he was confused, which was different from any other episodes. Pt states he is currently having a stabbing headache on the left side, as well as feeling exhausted. As of this examination, pt does not endorse any disorientation, weakness, facial droop, chest pain, dyspnea, sweating, or unsteadiness. Review of Systems Constitutional: + fatigue Eyes: no problem reported Respiratory: no dyspnea Cardiovascular: no chest pain Musculoskeletal: no muscle weakness Neurologic: no unsteadiness, no localized weakness and no loss of sensation Psychiatric: no confusion Physical Exam Constitutional: no acute distress and no altered mental status Eyes: PERRL, conjunctivae normal, anicteric sclerae Respiratory: normal respiratory effort, lungs clear to auscultation Cardiovascular: Rate/Rhythm: regular rate and regular rhythm Musculoskeletal: no cyanosis or clubbing, extremities motor strength 5/5 Neurologic: PERRL, EOMI, accommodation nl, no face palsy, no dysarthria Psychiatric: A+Ox3, euthymic affect Results & Data Vital Signs (Past 12 Hours) Vital Signs Temp Pulse Pulse Pulse Resp BP Pulse Ox 03/13/19 07:31 36.4 C L 72 18 151/95 H 97 03/13/19 04:15 36.4 C L 64 18 127/90 97 03/13/19 00:[address] showed no acute intracranial abnormality. Neck CT showed no evidence of dissection, focal vessel occlusion, or significant stenosis of the cervical arteries. Brain MRI showed no evidence for an acute ischemic event.
[2019-03-13] MEDS ORDERED: STROKE PATIENT DISCHARGE STA (14:49)
--- NOTE | 2019-03-23 22:16 | Discharge Summary ---
Date of Service March 13, 2019 Admission HPI Per Admitting Provider Mr. Garnica is a 54-year-old male with a past medical history of CVA, hypertension, hypercholesterolemia, and psychiatric disorders, who presented to the emergency department due to concerns for a stroke. The patient is currently residing at the [facility], where he was undergoing inpatient treatment for his psychiatric conditions. [facility] nursing staff was not present at the time of my examination, and medical history is largely obtained by chart review, and discussion with the ED physician and nursing. Per the chart review, the patient was last well at 5:45 PM. After this time, he was found to be "unresponsive," meaning he was not answering questions. When he did begin answering questions, he was confused, and exhibiting a right-sided facial droop and right-sided weakness. Per the staff at the [facility], this occurred after the patient took his evening dose of clonidine. Mr. Garnica states that he does not remember why he was brought to the hospital. He states that his last memory was going downstairs for dinner. He states that he currently feels well, and has no acute complaints. He states that he has not had any illnesses recently. He does report that he had a recent stroke per months ago at [facility] in [place]. He is not too clear on the details surrounding this. Past medical history: history of CVA, hypertension, hypercholesterolemia, and psychiatric disorders (patient states that he just has severe depression, however he is on medications to treat bipolar disorder and schizophrenia) Past surgical history: 2 ACL repairs, back surgery Medications: Amlodipine, aspirin, atorvastatin, citalopram, clopidogrel, mirtazapine, nicotine replacement, ziprasidone. Clonidine is not listed on patient's medication list Allergies: Augmentin Social history: Resides at the [facility], recently moved there 2 days ago. Smokes half a pack of cigarettes per day, does not wish to tell me how long he has been smoking for. No recent alcohol or recreational drug use. Principal Diagnosis TIA Discharge Exam Constitutional: WD/WN, vitals as above cooperative and comfortable Eyes: PERRL, conjunctivae normal, anicteric sclerae ENMT: external ear and nose normal, oropharynx normal Respiratory: normal respiratory effort, lungs clear to auscultation Cardiovascular: RRR, no murmur, no edema Gastrointestinal (Abdomen): normal bowel sounds, soft, nontender, no hepatosplenomegaly Musculoskeletal: no cyanosis or clubbing, extremities motor strength 5/5 Skin: no rashes, warm and dry Neurologic: patellar DTR's 2+ bilat, sensation intact and PERRL, EOMI, accommodation nl, no face palsy, no dysarthria moves all extremities and awake Motor/Sensory: + pronator drift (right sided) Discharge Data Allergies Allergy/AdvReac Type Severity Reaction Status Date / Time amoxicillin [From Augmentin] Allergy Unknown Unknown Verified 03/12/19 19:49 bee venom protein (honey bee) Allergy Unknown Unknown Verified 03/12/19 19:49 clavulanic acid Allergy Unknown Unknown Verified 03/12/19 19:49 [From Augmentin] turkey Allergy Unknown Unknown Verified 03/12/19 19:49 Consultations 03/12/19 19:49 ED Decision to Admit Stat 03/12/19 21:29 Consult Case Management - Discharge Planning Routine Consult Neurology Routine Ordered Studies 03/12/19 18:34 CT angio head w con Stat CT angio neck with con Stat CT head/brain wo con Stat 03/13/19 00:07 MR brain wo con Routine Hospital Course (1) TIA (transient ischemic attack): Mr. Garnica is a 54-year-old male with a past medical history of CVA, hypertension, hypercholesterolemia, and psychiatric disorders, who presented to the emergency department due to concerns for a stroke. ED course: 1 g IV acetaminophen, IV NS Appreciate input from neuro This patient's presentation seems most consistent with a TIA localizing to the left middle cerebral artery territory. He does have what appears to be a proximal occlusion of the left MCA with poor distal reconstitution. Fortunately no evidence of acute or subacute infarct on MRI. This finding was apparently identified in December during a similar presentation to [facility]. He is already on maximal antiplatelet therapy and I would not recommend making any changes to either his aspirin or Plavix at this time. His blood pressure seems appropriate. No evidence for hypotensive episode. His blood glucose is normal as well. No evidence for hypoglycemic episode. As he was found unresponsive initially I am unable to completely exclude a seizure of focal onset localizing to the left cerebral hemisphere followed by a period of postictal weakness and speech change. Seizures were not observed in this patient, however. None theless, for further assessment of possible "stroke mimics" I have ordered an EEG. Going forward, this patient should probably have a consultation with a neurovascular specialist at either [facility] or [facility] to determine if any further treatment would be indicated for his left MCA occlusion/severe stenosis. I do not think he has had a conventional arteriogram. However, the role for stenting of the middle cerebral arteries is not entirely clear. Yet, given his relatively young age and recurrent symptoms it is possible he would be a potential candidate for intervention. He should continue with atorvastatin as well. Hypertension resume home meds at discharge Hypercholesterolemia -Continue home atorvastatin Psychiatric disorders -Continue home citalopram, ziprasidone and mirtazapine -Patient requested PRN Ativan, stating he takes this at home Tobacco abuse -nicotine patch ordered -Encourage smoking cessation (2) Depression: (3) Hypercholesterolemia: (4) Hypertension: (5) Tobacco abuse: Total Time Total Time Spent Total Time Spent (In Minutes): 32 Total Time Includes: Examination of the Patient, Discharge Planning and Medication Reconciliation Discharge Plan Discharge Items Patient Disposition: Transfer Behavioral Health Fac Reason For Visit: TIA Discharge Diagnosis: TIA Activity: Resume your previous activity Non-emergency contact: Primary Care Provider Call non-emergency contact if: you have any medication questions Follow-up/Referrals: Charly White [Primary Care Provider] - Diet: Regular Addtl Attending Provider Instructions: Will need followup either with neurovascular surgery at [facility] or [facility]. Issue however, is patient is not compliant with medicine. Will need to make sure he will take aspirin and plavix as an outpatient if neuro-surgery recommends a stent in his Left MCA Pending Studies at Discharge: No Stand-Alone Forms: My [facility] Medications and DC Order Prescriptions: Continued atorvastatin 40 mg Tablet 40 mg PO DAILY RF: 0 nicotine (polacrilex) 2 mg Gum 2 mg BUCCAL DIRECTED PRN (Reason: DESIRE TO SMOKE) RF: 0 clopidogrel [Plavix] 75 mg Tablet 75 mg PO DAILY RF: 0 aspirin [Aspir-81] 81 mg Tablet,Delayed Release (Dr/Ec) 81 mg PO DAILY RF: 0 citalopram [Celexa] 20 mg Tablet 20 mg PO DAILY RF: 0 ziprasidone HCl [Geodon] 20 mg Capsule 20 mg PO DAILY RF: 0 amlodipine 10 mg Tablet 10 mg PO DAILY RF: 0 nicotine 21 mg/24 hr Patch 24 Hour 1 patch TRANSDERMAL DAILY RF: 0 mirtazapine 15 mg Tablet 15 mg PO DAILY RF: 0 Discharge Orders: Discharge Order (Routine); Ordered 03/13/19 Ordered By: Ernst Betancourt Admission Data Admit Date/Time: 03/12/19 20:34 Attending Provider: Ernst Betancourt Admit Provider: Teresa Rod Primary Care Provider: Charly White Other Providers: Arvind Dasilva ; Varghese Elizondo Other Interventions: Discharge Summary Assessment (RN) Last Done: 03/13/19 16:43 DC Date/Time DO NOT enter until pt leaves facility: 03/13/19 17:36
== END 2019-03-13 17:36 | DRG 69 ==
LOC: ED 18:42 → 2E 20:34 → SUATTDRO 20:34 → 2E 21:00